=== PATIENT | female | born 1985 | race Caucasian/White ===

== ENCOUNTER 2017-09-08 01:19 | Emergency (ER) | payer SELFPAY ==
[~2017-09-08] VITALS: Ht 165.1 cm; Wt 59.0 kg
--- NOTE | 2017-09-08 01:14 | Emergency Room Report ---
History of Present Illness General Source: Patient, EMS (EDER MUHAMMAD M.D.) Present Illness HPI 32YOF BIBEMS with suspected accidental OD, 5 clonazepam after leaving bar Found in her car EMS states patient was drinking - patient denies She says friend gave her the meds, not her own, was tyring to "relax". Denies SI to me. EMS states [employer] placed patient on 5150 hold however paperwork was not completed by [employer] Patient denies psych history, other medical problems Feels well otherwise (EDER MUHAMMAD M.D.) Allergies: Uncoded Allergies: ZICAM (Allergy, Unknown, 09/08/17) Patient History Past Medical History: none Past Surgical History: none Pertinent Family History: none Social History: Denies: smoking, alcohol use, drug use Now: No Immunizations: UTD Reviewed Nursing Documentation: PMH: Agreed, PSxH: Agreed (EDER MUHAMMAD M.D.) Review of Systems All Other Systems: negative except mentioned in HPI (EDER MUHAMMAD M.D.) Physical Exam Sp02 EP Interpretation: reviewed, normal General Appearance: normal inspection, well appearing, no apparent distress, alert, GCS 15, non-toxic Head: normocephalic, atraumatic Eyes: bilateral eye PERRL, bilateral eye EOMI ENT: normal ENT inspection, hearing grossly normal, normal pharynx, no angioedema, normal voice, TMs + canals normal, uvula midline, moist mucus membranes Neck: normal inspection, full range of motion, supple, thyroid normal, no meningismus, no bony tend Respiratory: normal inspection, lungs clear, normal breath sounds, no rhonchi, no respiratory distress, no retraction, no accessory muscle use, no wheezing, speaking full sentences Cardiovascular #1: regular rate, rhythm, no edema, no JVD, normal capillary refill Gastrointestinal: normal inspection, normal bowel sounds, non tender, soft, no mass, no peritonitis, non-distended, no guarding, no hernia, no pulsatile mass Genitourinary: no CVA tenderness Musculoskeletal: normal inspection, back normal, normal range of motion, no calf tenderness, pelvis stable, Raina's Sign negative Neurologic: normal inspection, alert, oriented x3, responsive, inspector of weights and measures III-XII nml as tested, motor strength/tone normal, cerebellar normal, normal gait, speech normal Psychiatric: normal inspection, judgement/insight normal, mood/affect normal, no delusions, anxious Skin: normal inspection, normal color, no rash Lymphatic: normal inspection, no adenopathy (EDER MUHAMMAD M.D.) Medical Decision Making Diagnostic Impression: Primary Impression: Substance abuse ER Course VSS, afebrile Patient repeatedly denies SI, HI, AVH Not on HOLD Slept throughout night Signed out to Dr Mcmillan at 630am for ultimate dispo pending sobriety (EDER MUHAMMAD M.D.) ER Course I received signout from 32-year-old female, substance abuse, focal, very calm and cooperative, no SI or HI When told that her car could have been possibly towed as per police, she became very angry, hostile, and aggressive. She was aggressive toward staff, punched a computer, and then punched a large TV and broke it Security was called at that time, [employer] called (Rustam Mcmillan M.D.) Rhythm Strip Diag. Results EP Interpretation: yes Rate: 65 Rhythm: NSR, no PVC's, no ectopy (EDER MUHAMMAD M.D.) Status: improved (EDER MUHAMMAD M.D.) Disposition: HOME, SELF-CARE EDER MUHAMMAD M.D. Sep 08, 2017 01:14 Rustam Mcmillan M.D. Sep 08, 2017 07:42
[2017-09-08 06:00] VITALS: BP 98/47
[2017-09-08 07:28] VITALS: BP 106/91
== END 2017-09-08 07:44 | disposition home or self-care (01) ==
LOC: EDBD 01:19 → EMR 01:35
DX: F13.10 Sedative, hypnotic or anxiolytic abuse, uncomplicated (principal)
CPT/HCPCS: 80307; 99284